=== PATIENT | male | born 1995 | race Caucasian/White ===

== ENCOUNTER 2017-03-05 22:57 | Emergency (ER) | payer OTHER | END 2017-03-06 01:42 | disposition home or self-care (01) | LOC: ER1 22:57 | DX: S09.90XA Unspecified injury of head, initial encounter (principal); F17.200 Nicotine dependence, unspecified, uncomplicated; W18.30XA Fall on same level, unspecified, initial encounter; Y92.009 Unspecified place in unspecified non-institutional (private) residence as the place of occurrence of the external cause | CPT/HCPCS: 70450; 99283 ==

== ENCOUNTER 2017-03-06 23:24 | Emergency (ER) | payer OTHER | END 2017-03-07 01:50 | disposition home or self-care (01) | LOC: ER1 23:24 | DX: Z04.1 Encounter for examination and observation following transport accident (principal) | CPT/HCPCS: 70450; 71250; 72125; 96374; 99284; J1885 ==

== ENCOUNTER 2021-06-18 02:03 | Emergency (ER) | payer OTHER, BC ==
[~2021-06-18 02:03] MED LIST: BACTROBAN OINT22 GM EXT; IBUPROFEN600 MG PO; OMEPRAZOLE40 MG PO; ZOFRAN4 MG PO
[2021-06-18] MEDS ORDERED: NAPROSYN500 MG PO (04:22)
[2021-06-18] MEDS ORDERED: ERYTHROMYCIN OP1 GM EYERT (04:22)
== END 2021-06-18 04:41 | disposition home or self-care (01) ==
LOC: ER1 02:03
DX: T15.01XA Foreign body in cornea, right eye, initial encounter (principal); Z23 Encounter for immunization; W22.8XXA Striking against or struck by other objects, initial encounter
CPT/HCPCS: 65205; 65220; 90471; 90715; 99283

== ENCOUNTER 2022-03-06 16:28 | Emergency (ER) | payer SELFPAY ==
[~2022-03-06 16:28] MED LIST changes: +ERYTHROMYCIN OP1 GM EYERT; +NAPROSYN500 MG PO
[2022-03-06] MEDS ORDERED: ERYTHROMYCIN O3.5 GM EYELF (17:35)
[2022-03-06] MEDS ORDERED: NAPROSYN500 MG PO (17:35)
== END 2022-03-06 17:55 | disposition home or self-care (01) ==
LOC: ER1 16:28
DX: S05.02XA Injury of conjunctiva and corneal abrasion without foreign body, left eye, initial encounter (principal); F17.290 Nicotine dependence, other tobacco product, uncomplicated; Z88.1 Allergy status to other antibiotic agents; X58.XXXA Exposure to other specified factors, initial encounter
CPT/HCPCS: 99283